=== PATIENT | male | born 2000 | race Caucasian/White ===

== ENCOUNTER → 2022-07-18 06:58 | Outpatient (CLI) | payer OTHER, SELFPAY ==
[2022-07-18 18:04] LABS: Basophils # 0.1 K/mm3 (0-0.2); Basophils % 0.6 % (0.1-2.0); Eosinophils # 0.2 K/mm3 (0.0-0.4); Eosinophils % 1.9 % (0.1-12.0); Hematocrit 39.1 % (42.0-52.0); Hemoglobin 12.9 g/dL (14.1-18.0); Lymphocytes # 2.2 K/mm3 (0.7-4.5); Lymphocytes % 24.7 % (10-50); Mean Corpuscular HGB Conc 32.9 g/dL (31.8-35.4); Mean Corpuscular Hemoglobin 30.5 pg (27.0-31.2); Mean Corpuscular Volume 92.5 fl (80-94); Mean Platelet Volume 9.2 fl (7.4-10.4); Monocytes # 0.5 K/mm3 (0.1-1.0); Monocytes % 5.2 % (1.7-9.3); Neutrophils # 6.1 K/mm3 (1.8-7.8); Neutrophils % 67.7 % (37.0-80.0); Platelet Count 260 K/mm3 (142-424); Red Blood Count 4.22 M/mm3 (4.60-6.20); Red Cell Distribution Width 13.5 % (11.5-17.5); White Blood Count 9.1 K/mm3 (4.8-10.8)
[2022-07-18 18:14] LABS: Alanine Aminotransferase 28 U/L (12-78); Albumin Level 4.7 g/dl (3.5-5.0); Albumin/Globulin Ratio 1.9 (1.1-1.8); Alkaline Phosphatase 72 U/L (38-126); Anion Gap 11.9 mEq/L (5-15); Aspartate Amino Transferase 46 U/L (17-59); Bilirubin,Total 0.3 mg/dl (0.2-1.3); Blood Urea Nitrogen 22 mg/dl (9-20); Carbon Dioxide 27 mmol/L (22.0-30.0); Chloride 99 mmol/L (98-107); Estimated Glomerular Filt Rate 82 ml/min (>60); GFR (African American) 100 ML/MIN (>60); Globulin 2.5 g/dL (1.3-3.2); Glucose 124 mg/dl (74-100); Potassium 3.9 mmoL/L (3.5-5.1); Sodium 134 mmol/L (136-145); Total Protein,Serum 7.2 g/dl (6.3-8.2)
[2022-07-18 18:22] LABS: C-Reactive Protein 12.3 mg/L (0-4)
[2022-07-18 18:47] LABS: Thyroid Stimulating Hormone 0.48 uIU/mL (0.465-4.68)
[2022-07-18 19:05] LABS: Vitamin B12 591 pg/mL (239-931)
[2022-07-18 19:26] LABS: Erythrocyte Sedimentation Rate 12 mm/hr (0-15)
[2022-07-19 09:19] LABS: Iron 37 ug/dL (49-181)
[2022-07-19 09:28] LABS: Total Iron Binding Capacity 307 ug/dL (261-462)
[2022-07-19 10:01] LABS: Ferritin 131 ng/ml (17.9-464)
[2022-07-20 08:15] LABS: RA Latex Turbid. <10.0 IU/mL (<14.0)
[2022-07-20 16:15] LABS: Anti-Cyclic Citrullinated Pept 0 units (0-19)
[2022-07-22 14:10] LABS: Anti-Centromere B Antibodies <0.2 AI (0.0-0.9); Anti-DNA (DS) Ab Qn <1 IU/mL (0-9); Anti-Jo-1 <0.2 AI (0.0-0.9); Anti-Smith Antibody <0.2 AI (0.0-0.9); Antichromatin Antibodies <0.2 AI (0.0-0.9); Antiscleroderma-70 Antibodies <0.2 AI (0.0-0.9); RNP Antibodies 0.5 AI (0.0-0.9); Sjogren's Anti-SS-A <0.2 AI (0.0-0.9); Sjogren's Anti-SS-B <0.2 AI (0.0-0.9)
== END ==
PROVIDERS: PCP Physician Assistant; Visit Provider Physician Assistant
DX: M25.50 Pain in unspecified joint (principal); D64.9 Anemia, unspecified; M62.838 Other muscle spasm; G25.81 Restless legs syndrome; M25.561 Pain in right knee; M25.562 Pain in left knee
CPT/HCPCS: 80053; 82306; 82607; 82728; 83540; 83550; 84443; 85025; 85651; 86140; 86200; 86225; 86235; 86431

== ENCOUNTER 2023-12-09 16:02 | Outpatient (CLI) | payer OTHER, SELFPAY ==
--- NOTE | 2023-12-09 16:06 | XR_ITS ---
FINAL REPORT TECHNIQUE: 5 views CLINICAL HISTORY: neck pain, no known injury FINDINGS: There is no fracture present. There is no malalignment. There are no significant degenerative changes. IMPRESSION: No acute process. Reviewed, Interpreted and Dictated by Phong Augustin MD Transcribed by Luiza Urrutia Authenticated and [facility]
== END 2023-12-09 23:59 | disposition home or self-care (01) ==
LOC: RAD 16:04
PROVIDERS: PCP Physician Assistant; Visit Provider Physician Assistant
DX: M54.2 Cervicalgia (principal)
CPT/HCPCS: 72050

== ENCOUNTER 2024-03-02 19:42 | Emergency (ER) | payer OTHER, SELFPAY ==
[2024-03-02 19:44] VITALS: BP 126/61; PULSE 69; RESP 18; TEMP 36.6; O2SAT 98; BMI 21.9
--- NOTE | 2024-03-02 19:50 | XR_ITS ---
PROCEDURE INFORMATION: Exam: XR Right Foot Exam date and time: 03/02/2024 7:46 PM Age: 24 years old Clinical indication: Injury or trauma; Other: Stepped on screwdriver; Swelling (edema); Foot; Right; Additional info: Puncture wound R foot plantar aspect TECHNIQUE: Imaging protocol: Radiologic exam of the right foot. Views: 3 or more views. COMPARISON: No relevant prior studies available. FINDINGS: Bones/joints: Normal. Soft tissues: Punctate foreign bodies in the soft tissues of the plantar aspect of the foot in the webspace between the 1st and 2nd toes. IMPRESSION: Punctate foreign bodies in the soft tissues of the plantar aspect of the foot in the webspace between the 1st and 2nd toes.
[2024-03-02 19:52] VITALS: BP 126/61; PULSE 84; O2SAT 100
--- NOTE | 2024-03-02 19:55 | PC.NURSE ---
patient to radiology
[2024-03-02 20:00] VITALS: BP 125/73; PULSE 80; O2SAT 100
[2024-03-02] MEDS: IBUPROFEN 400 MG TABLET 800 MG PO (20:04)
[2024-03-02] MEDS: ACETAMINOPHEN 500MG TAB 1000 MG PO (20:04)
[2024-03-02] MEDS: levoFLOXacin 750 MG TABLET PO (20:04)
--- NOTE | 2024-03-02 20:04 | ED_ITS ---
Discharge Plan Disposition Patient Disposition: Home, Self-Care Condition: Good Prescriptions Prescriptions: New ciprofloxacin HCl 500 mg tablet 500 mg PO BID Qty: 20 0RF cephalexin 500 mg capsule 500 mg PO TID 7 Days Qty: 21 0RF No Action buprenorphine-naloxone [Suboxone] 8-2 mg film 1 film buccal DAILY Qty: 30 0RF cyclobenzaprine 10 mg tablet 10 mg PO TID PRN (Reason: muscle spasm) Qty: 60 0RF Referrals Follow up/Referrals: Helga Prajapati PA [Primary Care Provider] - See instructions Marianela Esteves DPM [Staff Physician] - See instructions Activity Restrictions/Add. Instructions Additional Instructions/Restrictions: You were evaluated in the emergency department today. It looks that you have some small retained foreign bodies in your foot from this injury, which means you are very high risk for developing significant infection. Specifically, you are high risk for osteomyelitis, or bone infection. 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 Take Tylenol and ibuprofen every 4-6 hours at home as needed for pain. Keep your wound clean and dry. Follow-up closely with your primary care provider as well as with podiatry, Dr. Esteves, for further evaluation and management. Return to the emergency department for new or worsening symptoms such as significant worsening of pain and swelling, fevers, or other concerns Clinical Impressions Clinical Impression: Puncture wound of foot with complication, Cellulitis Stand Alone Forms Stand Alone Forms: Work/School Release Instructions Patient Instructions: DI for Cellulitis -- Adult, DI for Puncture Wound Print Language Print Language: Wolof Discharge ED Provider: Jasmine Colón General Adult HPI General Chief complaint: PAIN Stated complaint: AO 02/29/24 right foot injury Time Seen by Provider: 03/02/24 19:45 Mode of Arrival: Ambulatory Source of Information: Patient Limitations: No Limitations Description of Symptoms (Recalled from ER Triage Doc. by RN): Patient stepped on a screwdriver (R foot) friday night. States it hurts and is red today. History of Present Illness HPI narrative: This patient is a 24-year-old male who denies significant past medical history presenting to the emergency department for evaluation with concern for puncture wound to his right foot. Patient states that on Friday, he was walking outside barefoot when he accidentally stepped on a siri screwdriver. It penetrated the plantar aspect of his right foot. He states that since then, he has had worsening pain, swelling, and redness. No fevers, chills, or other systemic symptoms. No numbness, tingling, or other concerns. He is unsure when his last tetanus shot was. Related Data Previous Rx's ?Medication ?Instructions ?Recorded buprenorphine 8 mg-naloxone 2 mg 1 film buccal DAILY #30 ea 12/09/23 sublingual film (Suboxone) cyclobenzaprine 10 mg tablet 10 mg PO TID PRN muscle spasm #60 12/09/23 tabs cephalexin 500 mg capsule 500 mg PO TID 7 days #21 caps 03/02/24 ciprofloxacin HCl 500 mg tablet 500 mg PO BID #20 tabs 03/02/24 Allergies Allergy/AdvReac Type Severity Reaction Status Date / Time No Known Allergies Allergy Verified 10/14/23 15:43 [facility] Disclaimer: The information contained in this section may have been updated after the patient was seen, as this information can be updated by other users. Surgical History Hx of tonsillectomy Social History Smoking Status: Current every day smoker alcohol intake: never current occupational status: employed Travel in the last 8 weeks: None ROS Obtained: Yes All systems reviewed & no additional complaints except as documented Physical Exam General General appearance: alert and in no apparent distress Head Head exam: atraumatic and normocephalic Eye Eye exam: Present normal appearance, PERRL and EOMI ENT ENT exam: Present normal exam, normal oropharynx, mucous membranes moist and normal external ear exam Neck Neck exam: Present normal inspection, full ROM and trachea midline; Absent tenderness Chest Chest inspection: Present normal inspection and symmetric chest wall rise; Absent tenderness Respiratory Respiratory exam: Present normal lung sounds bilaterally; Absent respiratory distress, wheezes, stridor or accessory muscle use Cardiovascular Cardiovascular exam: Present regular rate and normal rhythm Abdominal Exam Abdominal exam: Present soft; Absent distention, tenderness or guarding Extremities Exam Extremities exam: Present full ROM, tenderness, normal capillary refill and edema Expanded Lower Extremity Exam Right: Top foot image: 2 1. Redness, warmth, and tenderness to palpation with mild swelling. Bottom foot image: 2 1. Puncture wound that is extremely tender to palpation Neurovascular/Tendon exam: Present normal capillary refill and normal fine/light touch; Absent pulse deficit, motor deficit, sensory deficit, tendon deficit, extremity cold to touch, pallor or foot drop Back Exam Back exam: Present normal inspection and full ROM; Absent tenderness Neurological Exam Neurological exam: Present alert, oriented X3 and CN II-XII intact; Absent motor sensory deficit Psychiatric Psychiatric exam: Present normal affect and normal mood Skin Skin exam: Present warm and dry Medical Decision Making Medical Records Medical records reviewed: Yes I reviewed the patient's medical records. Screening: Per USPSTF and CDC recommendations, given the prevalence of disease in our region, it is our hospital?s policy to screen for HIV and viral Hepatitis for all patients aged 18 and over and those with ongoing risk factors. Azeem Inquiry Pt receiving controlled substance: No Vital Signs: 03/02/24 19:44 03/02/24 19:52 03/02/24 20:00 Temperature 97.9 F Temperature Source Oral Pulse Rate 84 80 Pulse Rate [Right Radial] 69 Respiratory Rate 18 Blood Pressure 126/61 125/73 Blood Pressure [Right Arm] 126/61 Blood Pressure Mean [Right Arm] 82 Blood Pressure Source [Right Arm] Automatic Cuff Blood Pressure Position [Right Arm] Supine 02 Sat by Pulse Oximetry 98 100 100 Oxygen Delivery Method Room Air Lab Data Lab results reviewed: Yes I reviewed the patient's lab results. Orders (Tests/Meds): ED MEDICATIONS Discontinued Medications Generic Name Dose Route Start Last Admin Trade Name Kathrine PRN Reason Stop Dose Admin Acetaminophen 1,000 mg 03/02/24 19:59 03/02/24 20:04 Acetaminophen 500mg Tab PO 03/02/24 20:00 1,000 mg ONCE ONE Administration Bacitracin 1 each 03/02/24 20:14 Bacitracin Oint 0.9gm Udp TP 03/02/24 20:15 ONCE ONE Ibuprofen 800 mg 03/02/24 19:59 03/02/24 20:04 Ibuprofen 400 Mg Tablet PO 03/02/24 20:00 800 mg ONCE ONE Administration Levofloxacin 750 mg 03/02/24 19:58 03/02/24 20:04 Levofloxacin 750 Mg Tablet PO 03/02/24 19:59 750 mg ONCE ONE Administration Tetanus/Reduced Diphtheria/Acell Pertussis 0.5 ml 03/02/24 19:59 03/02/24 20:05 Tet/Diphth/Pert-Adult 0.5ml Syringe IM 03/02/24 20:00 0.5 ml .ONCE ONE Administration ORDERS Category Date Time Status Foot XR right minimum 3 views [XR foot RT min 3V] Stat Exams 03/02/24 19:50 Taken Medical Decision Narrative: In summary, this patient is a 24-year-old presenting to the Emergency Department for evaluation of puncture wound to the right foot that happened 3 days ago with increased pain and swelling. Differential diagnoses considered include but are not limited to cellulitis, abscess, osteomyelitis, retained foreign body. Ruling out the most morbid conditions drove assessment. On exam, the patient is well-appearing with reassuring vital signs on cardiac telemetry. He has redness, warmth, swelling, and tenderness to the distal right foot. He is neurovascularly intact distally. Workup included x-rays of the right foot. 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 Patient was given Tdap booster as well as oral Levaquin for antipseudomonal coverage given plantar foot injury. He was given oral Tylenol and ibuprofen for pain. I independently interpreted x-rays prior to the radiologist read and noted retained radiopaque foreign bodies in the plantar aspect of the right foot with soft tissue swelling. No obvious bony destruction. Please see their read for final interpretation. Ultimately at this time, I feel the patient is very high risk for developing osteomyelitis given his retained foreign bodies and delayed presentation for care. His wound was copiously irrigated at bedside with sterile saline and Betadine. I then dressed it with bacitracin, Vaseline gauze, and sterile bulky dressing and gave him a postop hard sole shoe for additional support and is to help offload pressure onto this portion of his foot. at this time, I feel the patient is appropriate for discharge home with very close follow-up with podiatry as well as his primary care provider. He was given instructions for this as well as prescription for ciprofloxacin for pseudomonal coverage and cephalexin for staph/strep coverage. He is given instructions for wound care and supportive management. He was discharged in stable condition after all questions were answered with very strict return precautions. Critical Care Critical Care Time Critical Care Time: No
[2024-03-02] MEDS: TET/DIPHTH/PERT-ADULT 0.5ML SYRINGE 0.5 ML IM (20:05)
[2024-03-02 20:31] VITALS: BP 127/60; PULSE 80; RESP 16; TEMP 36.6; O2SAT 100
[2024-03-02] MEDS: BACITRACIN OINT 0.9GM UDP 1 EACH TP (20:32)
== END 2024-03-02 20:34 | disposition home or self-care (01) ==
PROVIDERS: Emergency Provider Emergency Medicine; PCP Physician Assistant
DX: S91.331A Puncture wound without foreign body, right foot, initial encounter (principal); L03.115 Cellulitis of right lower limb; W45.0XXA Nail entering through skin, initial encounter
CPT/HCPCS: 73630; 90471; 90715; 99283